=== PATIENT | male | born 1985 | race Caucasian/White ===

== ENCOUNTER 2017-02-07 12:45 | Emergency (ER) | payer SELFPAY ==
--- NOTE | 2017-02-07 14:01 | RADIOLOGY REPORT (SQ) ---
EXAM DESCRIPTION: OS CALCIS/HEEL LEFT COMPLETED DATE/TIME: 02/07/2017 1:44 pm REASON FOR STUDY: r/o FB COMPARISON: None. NUMBER OF VIEWS: Two views. TECHNIQUE: Plantar and lateral images acquired of the left calcaneous. LIMITATIONS: None. FINDINGS: MINERALIZATION: Normal. BONES: No acute fracture or dislocation. No worrisome bone lesions. JOINTS: No effusions. SOFT TISSUES: No soft tissue swelling. No foreign body. Tiny laceration over the posterior plantar soft tissues without retained radiopaque foreign body OTHER: No other significant finding. IMPRESSION: NEGATIVE STUDY OF THE LEFT CALCANEOUS. NO RADIOGRAPHIC EVIDENCE OF ACUTE INJURY. TECHNICAL DOCUMENTATION: JOB ID: [id number] [employer]- All Rights Reserved
[2017-02-07] MEDS ORDERED: CEPHALEXIN 500 MG CAPSULE PO ONE (14:36)
[2017-02-07] MEDS ORDERED: IBUPROFEN 800 MG TABLET PO ONE (14:39)
--- NOTE | 2017-02-07 14:40 | ER Document Report ---
HPI - HPI Patient complains to provider of: puncture wound Pain Level: 4 Context: Patient is a 31-year-old male presents emergency department complaining of left heel pain. Patient states that he stepped on a splinter on his deck this morning when he was barefoot. Tetanus is up-to-date. His girlfriend tried to remove what from his foot and came to make sure there is nothing stuck in his foot. Able to ambulate. Pain with pressure. Otherwise healthy male denies any allergies - DERM Skin Color: Normal Past Medical History - Social History Smoking Status: Current Every Day Smoker Chew tobacco use (# tins/day): No Frequency of alcohol use: Rare Drug Abuse: None Family History: Reviewed & Not Pertinent Renal/ Medical History: Denies: Hx Peritoneal Dialysis - Immunizations Hx Diphtheria, Pertussis, Tetanus Vaccination: Yes - tetanus within 5 years Vertical Provider Document - CONSTITUTIONAL Agree With Documented VS: Yes Notes: PHYSICAL EXAM GENERAL: Alert, interacts well. EXTREMITIES: Moves all 4 extremities spontaneously. No edema, radial and dorsalis pedis pulses 2/4 bilaterally. No cyanosis. NEUROLOGICAL: Alert and oriented x4. Normal speech. PSYCH: Normal affect, normal mood. SKIN: Warm, dry, normal turgor. No rashes or lesions noted. Superficial puncture wound noted on the sole of the left heel without any evidence of active bleeding or cellulitis. - INFECTION CONTROL TRAVEL OUTSIDE OF THE [place] IN LAST 30 DAYS: No - RESPIRATORY O2 Sat by Pulse Oximetry: 98 Course - Re-evaluation Re-evalutation: 02/07/17 14:37 Patient is a 31-year-old male is hemodynamically stable, no acute distress afebrile. No evidence of foreign body noted on x-ray. Wound is superficial in nature. Patient able to ambulate without assistance. Wound irrigated with Betadine and saline at the bedside and dry sterile dressing applied. Patient started on a short course of antibiotics, given strict return precautions and to follow-up with primary care as needed. - Vital Signs Vital signs: Temp Pulse Resp BP Pulse Ox 98.7 F 56 L 146/79 H 98 02/07/17 12:57 02/07/17 12:57 02/07/17 12:57 02/07/17 12:57 - Diagnostic Test Radiology reviewed: Image reviewed, Reports reviewed Discharge - Discharge Clinical Impression: Puncture wound Condition: Good Disposition: HOME, SELF-CARE Instructions: Puncture Wound ([facility]) Prescriptions: Cephalexin Monohydrate [Keflex 500 mg Capsule] 500 mg PO Q6H 5 Days capsule Forms: Return to Work
[2017-02-07 14:51] VITALS: BP 142/71
== END 2017-02-07 14:51 | disposition home or self-care (01) ==
LOC: ER 12:45
DX: S91.332A Puncture wound without foreign body, left foot, initial encounter (principal); M79.672 Pain in left foot; X58.XXXA Exposure to other specified factors, initial encounter; F17.200 Nicotine dependence, unspecified, uncomplicated
CPT/HCPCS: 99283

== ENCOUNTER 2017-09-12 15:19 | Emergency (ER) | payer BC ==
[2017-09-12 15:26] VITALS: BP 149/107
--- NOTE | 2017-09-12 15:42 | ER Document Report ---
HPI - HPI Pain Level: 3 Notes: Patient is a 32-year-old male with no significant past medical history who presents to the ED complaining of right posterior lateral wrist pain status post injury yesterday. Patient states that he was lifting up something heavy when he felt and heard a pop in his right wrist. The pain does not radiate. Extension at the wrist makes his pain worse. He has no associated numbness or tingling. Denies any drug allergies. No other concerns or complaints at this time. Denies any headache, fever, URI, sore throat, chest pain, palpitations, syncope, cough, shortness of breath, wheeze, dyspnea, abdominal pain, nausea/ vomiting/diarrhea, muscle paralysis/weakness, or rash. - ROS Systems Reviewed and Negative: Yes All other systems reviewed and negative Past Medical History - Social History Smoking Status: Never Smoker Family History: Reviewed & Not Pertinent Renal/ Medical History: Denies: Hx Peritoneal Dialysis - Immunizations Hx Diphtheria, Pertussis, Tetanus Vaccination: Yes - tetanus within 5 years Vertical Provider Document - CONSTITUTIONAL Agree With Documented VS: Yes Notes: PHYSICAL EXAMINATION: GENERAL: Well-appearing, well-nourished and in no acute distress. LUNGS: Breath sounds clear to auscultation bilaterally and equal. No wheezes rales or rhonchi. HEART: Regular rate and rhythm without murmurs, rubs, gallops. Musculoskeletal: Rt wrist: FROM to passive/active. Strength 5+/5. N/V intact distal. No obvious swelling, ecchymosis, erythema, or deformity. + tenderness to the posterolateral wrist to palp. No scaphoid tenderness or tenderness of the hand/digits. Jojo neg. Compartments soft. Extremities: No cyanosis, clubbing, or edema b/l. Peripheral pulses 2+. Capillary refill less than 3 seconds. NEUROLOGICAL: Normal speech, normal gait. Normal sensory, motor exams PSYCH: Normal mood, normal affect. SKIN: Warm, Dry, normal turgor, no rashes or lesions noted. - INFECTION CONTROL TRAVEL OUTSIDE OF THE [place] IN LAST 30 DAYS: No Course - Re-evaluation Re-evalutation: 09/12/17 16:15 Patient is an afebrile, well-hydrated, 32-year-old male who presents to the ED with right posterior lateral wrist pain, suspect sprain versus strain. Vitals are acceptable. PE is otherwise unremarkable for any neurovascular compromise, obvious tendon/ligament rupture, obvious fracture/dislocation, septic joint, compartment syndrome. X-ray was unremarkable for any acute pathology. Cockup wrist splint provided today. Conservative measures for symptoms otherwise. Recheck with your PCM in 3-5 days. Consider consult orthopedic/physical therapy. Return to the ED with any worsening/concerning symptoms otherwise as reviewed discharge. Patient is in agreement. - Vital Signs Vital signs: Temp Pulse Resp BP Pulse Ox 98.7 F 69 12 149/107 H 97 09/12/17 15:24 09/12/17 15:24 09/12/17 15:24 09/12/17 15:24 09/12/17 15:24 Discharge - Discharge Clinical Impression: Right wrist pain Condition: Stable Disposition: HOME, SELF-CARE Additional Instructions: Rest, Ice, Compression, Elevation Use splint as directed Tylenol/ibuprofen as needed Light stretches daily Strength exercises as able Moist heat and massage may help F/u with your PCP in 3-5 days for a recheck Consider consult(s) with Orthopedics/physical therapy for ongoing/worsening symptoms Return to the ED with any worsening symptoms and/or development of fever, headache, chest pain, palpitations, syncope, shortness of breath, trouble breathing, abdominal pain, n/v/d, muscle weakness/paralysis, numbness/tingling, swelling, redness, or other worsening symptoms that are concerning to you. Forms: Elevated Blood Pressure Referrals: [facility] [Provider Group] - Follow up as needed
--- NOTE | 2017-09-12 16:10 | RADIOLOGY REPORT (SQ) ---
EXAM DESCRIPTION: WRIST RIGHT 3 VIEWS COMPLETED DATE/TIME: 09/12/2017 3:57 pm REASON FOR STUDY: rt wrist pain COMPARISON: None. NUMBER OF VIEWS: Three views. TECHNIQUE: AP, lateral, and oblique radiographic images acquired of the right wrist. LIMITATIONS: None. FINDINGS: MINERALIZATION: Normal. BONES: No acute fracture or dislocation. No worrisome bone lesions. Normal alignment. SOFT TISSUES: No soft tissue swelling. No foreign body. OTHER: No other significant finding. IMPRESSION: NEGATIVE STUDY OF THE RIGHT WRIST. NO RADIOGRAPHIC EVIDENCE OF ACUTE INJURY. TECHNICAL DOCUMENTATION: JOB ID: [id number] [employer]- All Rights Reserved Reading location - IP/workstation name: [email or web address]
== END 2017-09-12 16:28 | disposition home or self-care (01) ==
LOC: ER 15:19
DX: M25.531 Pain in right wrist (principal); X50.0XXA Overexertion from strenuous movement or load, initial encounter
CPT/HCPCS: 99283; 73110; L3908